=== PATIENT | female | born 1950 | race Caucasian/White ===

== ENCOUNTER 2016-10-06 11:00 | Outpatient (CLI) | payer OTHER ==
[~2016-10-06 11:00] MED LIST: ASPIRIN EC81 MG PO; CALCIUM 600+D31 TAB PO; DOXEPIN HCL100 MG PO; FLAX SEED OIL1300 MG PO; MAGNESIUM400 M1 PO; MELATONIN3 M1 PO; MELATONIN5 M1 PO; METOPROLOL TART50 MG PO; MONTELUKAST SOD10 MG PO; ZOLPIDEM TARTRAT5 MG PO
--- NOTE | 2016-10-06 12:37 | DIAGNOSTIC IMAGING REPORT ---
PROCEDURE: MG BILATERAL SCREENING W/CAD INDICATION: SCREENING TECHNIQUE: Bilateral CC and MLO digital views. COMPARISON: Compared to 10/18/2013, 12/10/2011, and 01/02/2010. FINDINGS: Computer-aided detection applied. Mildly dense with a few dystrophic calcifications. No change. IMPRESSION: 1. Negative mammogram. RESULT CODE: 1- Negative. A. A negative report should not delay biopsy if a dominant or clinically suspicious mass is present. 10-15% of cancers are not identified by x-ray. B. A negative report may reinforce clinical impression. C. Adenosis and dense breasts may obscure an underlying neoplasm. D. False positive reports average 6-10%. E.. A yearly screening mammogram is recommended. A reminder letter will be scheduled.
== END 2016-10-06 23:00 ==
LOC: MAM SRH 11:00
DX: Z12.31 Encounter for screening mammogram for malignant neoplasm of breast (principal)

== ENCOUNTER 2016-10-20 10:35 | Outpatient (CLI) | payer OTHER ==
--- NOTE | 2016-10-26 10:57 | DIAGNOSTIC IMAGING REPORT ---
PROCEDURE: XR UPPER GI WITH AIR INDICATION: Recurrent reflux symptoms. Epigastric pain. Dysphagia. Prior reflux surgery (8-10 years ago). TECHNIQUE: Double contrast study. Fluoroscopy time, 6.7 minutes; 3470.00 mGy. 47 fluoroscopic images (including cinefluoroscopy). COMPARISON: Comparison made to esophagram on 01/02/2010. FINDINGS: Postoperative changes consistent with prior fundoplication with mild residual narrowing of the gastroesophageal junction (7 mm). In addition, there are surgical clips in the epigastric region. There has been development of a small intermittent sliding hiatal hernia (possible paraesophageal hernia). There is very mild gastroesophageal reflux. Esophagus is otherwise normal. IMPRESSION: 1. Postoperative changes consistent with fundoplication. There is mild narrowing at the gastroesophageal junction (7 mm) which could represent normal postoperative appearance. 2. Very mild gastroesophageal reflux. 3. Development of small hiatal hernia (possible paraesophageal). 4. Findings were also faxed and called to Dr. Sahu (as requested).
== END 2016-10-20 23:00 ==
LOC: XR SRH 10:35
DX: K21.9 Gastro-esophageal reflux disease without esophagitis (principal)